=== PATIENT | male | born 1995 | race Caucasian/White ===

== ENCOUNTER 2017-08-12 05:59 | Emergency (ER) | payer OTHER ==
[~2017-08-12] VITALS: Ht 175.3 cm; Wt 114.6 kg
[2017-08-12] MEDS ORDERED: ZITHROMAX Z-PA250 MG PO (07:59)
[2017-08-12 08:19] VITALS: BP 130/80
== END 2017-08-12 08:20 | disposition home or self-care (01) ==
LOC: EME 05:59
DX: J20.9 Acute bronchitis, unspecified (principal); Z72.0 Tobacco use
CPT/HCPCS: 71046; 94640